=== PATIENT | female | born 1990 | race Caucasian/White ===

== ENCOUNTER 2016-08-24 08:37 | Emergency (ER) | payer MEDICAID, OTHER ==
[2016-08-24 09:16] VITALS: BP 110/70; PULSE 83; RESP 16; O2SAT 98
[2016-08-24 09:23] VITALS: TEMP 98.6
[2016-08-24] MEDS ORDERED: LETS SOLN TOPICAL 1 EA SYR TP ONE (09:23)
--- NOTE | 2016-08-24 09:53 | UCPHY ---
H & P Time Seen by Provider: 08/24/16 09:20 Patient Type: Established HPI/ROS: 25-year-old female presents complaining of dog pulled her nose ring out of place on her right nares Review of systems General no fever no chills no weakness HEENT no eye pain no eye discharge. No eye redness, no sore throat Respiratory no cough, no shortness of breath Cardiac no chest pain, no peripheral edema GI no abdominal pain, no diarrhea, no constipation, no nausea, no vomiting no flank pain, no hematuria, no dysuria Musculoskeletal no myalgias, no joint pain Heme no easy bruising, no easy bleeding Endo no polyuria, no polydipsia Skin no rashes, no pruritus Neuro no syncope, no dizziness, no headaches Psych is no suicidal ideation, no homicidal ideation Past Medical/Surgical History: Noncontributory Social History: Denies alcohol or drug use Smoking Status: Never smoked Physical Exam: 25-year-old female alert and oriented no acute distress nontoxic appearance afebrile Atraumatic normocephalic Right nares with very small superficial laceration at site nose ring No nasal bleeding No intranasal hematoma Neck supple No respiratory distress Constitutional: Initial Vital Signs Temperature (C) 37 C 08/24/16 09:14 Heart Rate 83 08/24/16 09:14 Respiratory Rate 16 08/24/16 09:14 Blood Pressure 110/70 08/24/16 09:14 O2 Sat (%) 98 08/24/16 09:14 O2 Delivery Mode Room Air Allergies/Adverse Reactions: No Known Allergies Allergy (Unverified 08/09/10 21:23) Home Medications: Medication Instructions Recorded LAURENT 28 TABLET 08/09/10 Medical Decision Making ED Course/Re-evaluation: Patient seen and evaluated for nasal injury secondary to nose ring being pulled by her dog. Impression Local minor trauma at site of nose ring Nothing requiring suturing Nose ring removed Plan Bacitracin or Neosporin daily as needed Return for any signs of infection - Data Points Medications Given: Discontinued Medications Tetracaine/Epinephrine/Lidocaine (Lets Soln Topical) 1 ea TP EDNOW ONE Stop: 08/24/16 09:24 Last Admin: 08/24/16 09:33 Dose: 1 ea Departure - Departure Disposition: Home, Routine, Self-Care Clinical Impression: Nasal abrasion, Nasal laceration Condition: Good Instructions: Facial Laceration (ED) Referrals: Leilani Bach FNP [Primary Care Provider] - As per Instructions - PQRS PQRS Measurement: na
== END 2016-08-24 10:08 | disposition home or self-care (01) ==
LOC: CED 08:37
DX: S01.21XA Laceration without foreign body of nose, initial encounter (principal); W54.8XXA Other contact with dog, initial encounter
CPT/HCPCS: 99214-PO; G0463-PO

== ENCOUNTER 2016-09-13 20:11 | Emergency (ER) | payer MEDICAID ==
[2016-09-13 20:23] VITALS: RESP 16; TEMP 98.1
--- NOTE | 2016-09-13 23:03 | EDPHY ---
H & P Stated Complaint: R ankle injury playing soccer HPI/ROS: Chief complaint: Right ankle injury History of present illness: This is a 25-year-old female who presents to the emergency department for right ankle injury. Patient rolled her ankle while playing soccer. She has had pain and swelling to the outer aspect of the ankle. It makes it difficult to ambulate. No report of open wounds - Personal History LMP (Females 10-55): 1-7 Days Ago Current Tetanus/Diphtheria Vaccine: Yes Current Tetanus Diphtheria and Acellular Pertussis (TDAP): Yes Tetanus Vaccine Date: 2014 - Medical/Surgical History Hx Asthma: No Hx Chronic Respiratory Disease: No Hx Diabetes: No Hx Cardiac Disease: No Hx Renal Disease: No Hx Cirrhosis: No Hx Alcoholism: No Hx HIV/AIDS: No Hx Splenectomy or Spleen Trauma: No Other PMH: migranes - Social History Smoking Status: Never smoked - Physical Exam Exam: General appearance: Alert, nontoxic Musculoskeletal: Edema to the lateral malleolus. This area is tender to palpation primarily around the soft tissue not over the bone. The rest of the ankle including over the Achilles is nontender. The foot, lower leg and knee are nontender. She is moving all digits in the foot and the knee without difficulty. Vascular exam: Normal pulses and capillary refill in the foot Neurologic exam: The patient has normal sensation and motor function distal to the injury. Constitutional: Initial Vital Signs Temperature (C) 36.7 C 09/13/16 20:20 Heart Rate 105 H 09/13/16 20:20 Respiratory Rate 16 09/13/16 20:20 Blood Pressure 119/83 H 09/13/16 20:20 O2 Sat (%) 95 09/13/16 20:20 O2 Delivery Mode Room Air Allergies/Adverse Reactions: No Known Allergies Allergy (Unverified 08/09/10 21:23) Home Medications: Medication Instructions Recorded NK [No Known Home Meds] 09/13/16 Medical Decision Making - Diagnostics Imaging: X-ray series of the right ankle is negative for acute findings ED Course/Re-evaluation: Patient seen under the supervision of my secondary supervising physician Dr. Gm Gamino. Patient presents to the emergency department for an ankle injury. The right lower extremity is neurovascularly intact. X-ray series is negative. Likely sprain/strain. She is placed in Gabriele wrap and stirrup splint. Home care is discussed. Return precautions are given. Patient voiced understanding and agreement with plan. Departure - Departure Disposition: Home, Routine, Self-Care Clinical Impression: Ankle sprain Qualifiers: Encounter type: initial encounter Involved ligament of ankle: unspecified ligament Laterality: right Qualified Code(s): S93.401A - Sprain of unspecified ligament of right ankle, initial encounter Condition: Good Instructions: Ankle Sprain (ED) Additional Instructions: Follow-up with a primary care doctor or an orthopedic doctor for continued evaluation and care Use ibuprofen 600 mg 3 times a day for the next 2-3 days for pain and swelling Ice the injury, 20 minutes on, 3 times daily for the next 3 days Elevate the injury as much as possible If symptoms worsen or new symptoms develop return to the emergency room for recheck Referrals: Sherice Cavazos MD [Primary Care Provider] - As per Instructions Anam Warren MD [Medical Doctor] - As per Instructions
[2016-09-13 23:11] VITALS: BP 129/73; PULSE 63; O2SAT 97
== END 2016-09-13 23:13 | disposition home or self-care (01) ==
DX: S93.401A Sprain of unspecified ligament of right ankle, initial encounter (principal); X58.XXXA Exposure to other specified factors, initial encounter; Y99.8 Other external cause status; Y93.66 Activity, soccer
CPT/HCPCS: L4350